=== PATIENT | female | born 1955 | race Caucasian/White ===

== ENCOUNTER 2019-06-08 19:05 | Observation (INO) ==
[2019-06-08 20:04] LABS: Basophils % 0.4 %; Eosinophils # 0.1 K/mcL (0.0-0.6); Eosinophils % 0.6 %; Hematocrit 42.3 % (35.3-44.9); Immature Granulocytes % 0.2 % (0-4); Lymphocytes # 3.9 K/mcL (0.6-4.6); Lymphocytes % 45.6 %; Mean Corpuscular HGB Conc 30.7 g/dL (31.6-35.5); Mean Corpuscular Hemoglobin 26.5 pg (28.0-33.3); Mean Corpuscular Volume 86.3 fL (83.0-100.0); Mean Platelet Volume 11.5 fL (9.4-12.4); Monocytes # 0.6 K/mcL (0.0-1.3); Monocytes % 6.5 %; Neutrophils # 3.9 K/mcL (1.6-8.9); Platelet Count 286 K/mcL (140-400); Red Cell Distribution Width 15.3 % (11.5-14.5); Segmented Neutrophils % 46.7 %; White Blood Count 8.4 K/mcL (4.3-11.1)
[2019-06-08 20:08] LABS: Clarity,Urine Slightly Hazy (Clear); Color,Urine Orange (Yellow)
[2019-06-08 20:09] LABS: Squamous Epithelial Cell,Urine Few per lpf (None-Few)
[2019-06-08 20:10] LABS: RBC,Urine TNTC per hpf (0-3)
[2019-06-08 20:11] LABS: Bacteria,Urine Few per hpf (None-Few)
[2019-06-08 20:16] LABS: Prothrombin Time 11.1 Seconds (9.4-12.1)
[2019-06-08 20:23] LABS: Albumin/Globulin Ratio 1.2 (1.1-2.2); Bilirubin,Direct 0.1 mg/dL (0.0-0.2); Bilirubin,Indirect 0.2 mg/dL (0.0-1.2); Bilirubin,Total 0.3 mg/dL (0.3-1.0); Globulin 3.4 g/dL (2.4-3.5); Total Protein 7.4 g/dL (6.4-8.9)
[2019-06-08 20:25] LABS: Calcium 9.2 mg/dL (8.6-10.3); Potassium 3.2 mEq/L (3.5-5.1)
[2019-06-08] MEDS ORDERED: cefTRIAXone 1,000 MG in Water for inj. (sterile) 10 ML IVP ONE (20:28)
[2019-06-08 20:30] LABS: Troponin I 0.66 ng/mL (< 0.04)
--- NOTE | 2019-06-08 20:32 | Emergency Department Note ---
Disposition Clinical Impression: Atrial fibrillation with RVR Disposition: Admitted As Inpatient Condition: Good Referrals: Manuel Alex MD [Primary Care Provider] - Forms: ED Satisfaction Letter Time of Disposition: 20:56 Arrhythmia/Palpitations HPI - General Chief Complaint: ED Arrhythmia/Palpitations Stated Complaint: A-FIB Time Seen by Provider: 06/08/19 19:15 Source: patient Mode of arrival: private vehicle Limitations: no limitations Nursing Notes Reviewed: Yes Vital Signs Reviewed: Yes - History of Present Illness HPI Narrative: 63F with Pmhx of Atrial fibrillation recently found to have a kidney stone in her left kidney for which she had a stent placed, who notes that her heart started feeling "out of rhythm" yesterday. She takes prn diltiazem, so she tried taking some yesterday and then again today at 1300 without resolution of her symptoms. She notes lightheadedness, dizziness, and shortness of breath. She denies chest pain. She denies nausea. She also notes that she has a stent in her kidney and is scheduled for lithotripsy to remove the kidney stone. Additionally, she has been taken off her anti-coagulation therapy for the afib due to bleeding issues in her kidney. - Related Data Home Medications Medication Instructions Recorded Confirmed Unable To Obtain [Unable to Obtain] 06/08/19 06/08/19 Allergies Allergy/AdvReac Type Severity Reaction Status Date / Time propoxyphene Allergy Rash Verified 06/08/19 19:25 [From Darvocet-N] oxycodone [From OxyContin] AdvReac Agitated Verified 06/08/19 19:26 Review of Systems: In addition to that documented in the HPI above, the additional ROS was obtained: Constitutional: Denies fevers or chills Eyes: Denies vision changes ENMT: Denies sore throat CV: Denies chest pain Reports sensation of palpitations Resp: Reports SOB GI: Denies vomiting or diarrhea : Denies painful urination MSK: Denies recent trauma Skin: Denies new rashes Neuro: Denies new numbness or tingling or weakness Reports lightheadeness Endocrine: Denies unexpected weight loss Heme: Denies bleeding disorders Past Medical History - Past Medical History Attestation: Yes The following information was validated with the patient. Medical history: Reports: atrial fibrillation, kidney stones - Social History Smoking Status: Never smoker Alcohol use: Reports: none Physical Exam General: A&O x 3. No acute distress. Well developed, well nourished. Head: atraumatic, normocephalic. ENT: No conjunctival injection, no scleral icterus. PERRLA. EOMI. Oropharynx non- erythematous. mucous membranes moist. Neuro: No focal deficits, no speech deficit, no facial droop, mentating well. BUE/BLE Str 5/5. Pulm: Lungs CTAB A/P. No wheezes, rales, ronchi. Cardio: irregularly irregular without murmur/rub/gallop. Chest not tender to palpation. Abd: Soft, non-distended. Normoactive bowel sounds. Non-tender to palpation. No guarding. Non rigid. Extremities: Radial pulses 2+ [place], dorsalis pedis/posterior tibialis 2+ [place]. Mild, non-pitting LE edema. No cyanosis, clubbing. Skin: warm, dry, intact. No rashes. Psych: Appropriate mood and affect. Answers questions appropriately. Cooperative with exam. - General Limitations: no limitations General appearance: alert, in no apparent distress Course - Consultations Consultation #1: Spoke with Dr. Long who was made aware of the patient, their lab results, their EKG findings, their anti-coagulation status, and had no further recommendations at this time. Time: 20:54 Vital Signs Temperature 98 F 06/08/19 19:22 Pulse Rate 96 06/08/19 19:22 Respiratory Rate 20 06/08/19 19:22 Blood Pressure 110/70 06/08/19 19:22 O2 Sat by Pulse Oximetry 96 06/08/19 19:22 Temperature 98 F 06/08/19 19:22 Pulse Rate 93 06/08/19 20:12 Respiratory Rate 16 06/08/19 20:12 Blood Pressure 102/79 06/08/19 20:12 O2 Sat by Pulse Oximetry 96 06/08/19 20:12 Oxygen Delivery Oxygen Delivery Room Air Arrhythmia/Palpitations - [facility] Narrative Medical decision making narrative: 63-year-old female with a past medical history of A. fib that is on when nec essary diltiazem, but noted that she felt that her heart was out of rhythm starting yesterday evening. Patient presented with a heart rate initially in the 130s. She denies any chest pain. Patient was given a bolus of diltiazem and started on a diltiazem drip which improved her rate low 100 bpm. Patient did have a positive troponin at 0.66 although I believe, and cardiology agrees, that this is likely due to demand ischemia. Patient will be admitted to the hospitalist Dr. Schafer who is agreed to accept the patient to his service. Results of the workup including any imaging and/or labwork was shared with the patient at bedside. Patient was given an opportunity to ask questions at bedside and all of their concerns were addressed. Patient verbalized understanding and agreement with plan of care. Pt remained stable while in the department. - Medical Records Medical records reviewed: Yes I reviewed the patient's medical records. - Lab Data Lab results reviewed: Yes I reviewed the patient's lab results. Result diagrams: 06/08/19 19:49 06/08/19 19:49 Lab Results 06/08/19 06/08/19 06/08/19 Range/Units 19:49 19:49 19:49 WBC (4.3-11.1) K/mcL RBC (3.82-4.97) M/mcL Hgb (11.5-15.4) g/dL Hct (35.3-44.9) % MCV (83.0-100.0) fL MCH (28.0-33.3) pg MCHC (31.6-35.5) g/dL RDW (11.5-14.5) % Plt Count (140-400) K/mcL MPV (9.4-12.4) fL Immature Gran % (0-4) % Seg Neutrophils % % Lymphocytes % % Monocytes % % Eosinophils % % Basophils % % Neutrophils # (1.6-8.9) K/mcL Lymphocytes # (0.6-4.6) K/mcL Monocytes # (0.0-1.3) K/mcL Eosinophils # (0.0-0.6) K/mcL Basophils # (0.0-0.2) K/mcL PT 11.1 (9.4-12.1) Seconds INR 1.0 APTT 30.0 (26.0-36.0) Seconds Sodium (136-145) mEq/L Potassium (3.5-5.1) mEq/L Chloride (98-107) mEq/L Carbon Dioxide (23-29) mEq/L BUN (8-23) mg/dL Creatinine (0.60-1.20) mg/dL Est GFR ( Amer) (> 60) Est GFR (Non-Af Amer) (> 60) BUN/Creatinine Ratio (6-26) Glucose (70-105) mg/dL Calculated Osmolality (280-300) Calcium (8.6-10.3) mg/dL Total Bilirubin 0.3 (0.3-1.0) mg/dL Direct Bilirubin 0.1 (0.0-0.2) mg/dL Indirect Bilirubin 0.2 (0.0-1.2) mg/dL AST 30 (13-39) Units/L ALT 18 (7-52) Units/L Alkaline Phosphatase 94 (34-104) Units/L Troponin I (< 0.04) ng/mL B-Natriuretic Peptide 268 H (Less than 100) pg/mL Serum Total Protein 7.4 (6.4-8.9) g/dL Albumin 4.0 (3.5-5.7) g/dL Globulin 3.4 (2.4-3.5) g/dL Albumin/Globulin Ratio 1.2 (1.1-2.2) Lipase 25 (11-82) Units/L Ur Specimen Adequacy Urine Color (Yellow) Urine Clarity (Clear) Urine Microscopic RBC (0-3) per hpf Urine Microscopic WBC (0-3) per hpf Ur Squamous Epith Cells (None-Few) per lpf Urine Bacteria (None-Few) per hpf Ur Culture Indicated? (NO) 06/08/19 06/08/19 06/08/19 Range/Units 19:49 19:49 19:49 WBC 8.4 (4.3-11.1) K/mcL RBC 4.90 (3.82-4.97) M/mcL Hgb 13.0 (11.5-15.4) g/dL Hct 42.3 (35.3-44.9) % MCV 86.3 (83.0-100.0) fL MCH 26.5 L (28.0-33.3) pg MCHC 30.7 L (31.6-35.5) g/dL RDW 15.3 H (11.5-14.5) % Plt Count 286 (140-400) K/mcL MPV 11.5 (9.4-12.4) fL Immature Gran % 0.2 (0-4) % Seg Neutrophils % 46.7 % Lymphocytes % 45.6 % Monocytes % 6.5 % Eosinophils % 0.6 % Basophils % 0.4 % Neutrophils # 3.9 (1.6-8.9) K/mcL Lymphocytes # 3.9 (0.6-4.6) K/mcL Monocytes # 0.6 (0.0-1.3) K/mcL Eosinophils # 0.1 (0.0-0.6) K/mcL Basophils # 0.0 (0.0-0.2) K/mcL PT (9.4-12.1) Seconds INR APTT (26.0-36.0) Seconds Sodium 136 (136-145) mEq/L Potassium 3.2 L (3.5-5.1) mEq/L Chloride 99 (98-107) mEq/L Carbon Dioxide 27 (23-29) mEq/L BUN 12 (8-23) mg/dL Creatinine 1.28 H (0.60-1.20) mg/dL Est GFR ( Amer) 51 L (> 60) Est GFR (Non-Af Amer) 42 L (> 60) BUN/Creatinine Ratio 9 (6-26) Glucose 106 H (70-105) mg/dL Calculated Osmolality 282 (280-300) Calcium 9.2 (8.6-10.3) mg/dL Total Bilirubin (0.3-1.0) mg/dL Direct Bilirubin (0.0-0.2) mg/dL Indirect Bilirubin (0.0-1.2) mg/dL AST (13-39) Units/L ALT (7-52) Units/L Alkaline Phosphatase (34-104) Units/L Troponin I 0.66 H* (< 0.04) ng/mL B-Natriuretic Peptide (Less than 100) pg/mL Serum Total Protein (6.4-8.9) g/dL Albumin (3.5-5.7) g/dL Globulin (2.4-3.5) g/dL Albumin/Globulin Ratio (1.1-2.2) Lipase (11-82) Units/L Ur Specimen Adequacy See below A Urine Color [place] A (Yellow) Urine Clarity Slightly Hazy (Clear) Urine Microscopic RBC TNTC H (0-3) per hpf Urine Microscopic WBC 5-15 H (0-3) per hpf Ur Squamous Epith Cells Few (None-Few) per lpf Urine Bacteria Few (None-Few) per hpf Ur Culture Indicated? YES A (NO) - Radiology Data Radiology results reviewed: Yes I reviewed the patient's radiology results. Chest X-Ray 06/08/19 19:18 IMPRESSION: No acute abnormality visualized. D/ / Sha Martinez MD / Sha Martinez MD Interpreting Provider: Sha Martinez MD - EKG Data EKG attestation: Yes I reviewed and interpreted this EKG. EKG results narrative: 1934: Heart rate 136, rhythm atrial fibrillation, axis normal. QRS 86, QTC [address] depression noted in leads V1 through V3. No ST elevation noted. Previous EKG is dated 05/21/2006 and shows normal sinus rhythm. 2035: Heart rate 93, rhythm atrial fibrillation, axis normal. QRS 99, QTC 452. ST depression seen on previous EKG has resolved. No ST segment elevation or depression noted on this EKG.
--- NOTE | 2019-06-08 21:09 | Emergency Department Note ---
Disposition Clinical Impression: Atrial fibrillation with RVR Disposition: Admitted As Inpatient Condition: Good Referrals: Manuel Alex MD [Primary Care Provider] - Forms: ED Satisfaction Letter Time of Disposition: 21:09 General Adult HPI - General Chief complaint: ED Arrhythmia/Palpitations Stated complaint: A-FIB Time Seen by Provider: 06/08/19 19:15 Source: patient Mode of arrival: private vehicle Limitations: no limitations - History of Present Illness Pain Scale: 0 - Related Data Home Medications Medication Instructions Recorded Confirmed Unable To Obtain [Unable to Obtain] 06/08/19 06/08/19 Allergies Allergy/AdvReac Type Severity Reaction Status Date / Time propoxyphene Allergy Rash Verified 06/08/19 19:25 [From Darvocet-N] oxycodone [From OxyContin] AdvReac Agitated Verified 06/08/19 19:26 Past Medical History - Past Medical History Medical history: Reports: atrial fibrillation, kidney stones - Social History Smoking Status: Never smoker Alcohol use: Reports: none Physical Exam - General Limitations: no limitations General appearance: alert, in no apparent distress Course Vital Signs Temperature 98 F 06/08/19 19:22 Pulse Rate 96 06/08/19 19:22 Respiratory Rate 20 06/08/19 19:22 Blood Pressure 110/70 06/08/19 19:22 O2 Sat by Pulse Oximetry 96 06/08/19 19:22 Temperature 98 F 06/08/19 19:22 Pulse Rate 93 06/08/19 20:12 Respiratory Rate 16 06/08/19 20:12 Blood Pressure 102/79 06/08/19 20:12 O2 Sat by Pulse Oximetry 96 06/08/19 20:12 Oxygen Delivery Oxygen Delivery Room Air Medical Decision Making - Lab Data Result diagrams: 06/08/19 19:49 06/08/19 19:49 Lab Results 06/08/19 06/08/19 06/08/19 Range/Units 19:49 19:49 19:49 WBC (4.3-11.1) K/mcL RBC (3.82-4.97) M/mcL Hgb (11.5-15.4) g/dL Hct (35.3-44.9) % MCV (83.0-100.0) fL MCH (28.0-33.3) pg MCHC (31.6-35.5) g/dL RDW (11.5-14.5) % Plt Count (140-400) K/mcL MPV (9.4-12.4) fL Immature Gran % (0-4) % Seg Neutrophils % % Lymphocytes % % Monocytes % % Eosinophils % % Basophils % % Neutrophils # (1.6-8.9) K/mcL Lymphocytes # (0.6-4.6) K/mcL Monocytes # (0.0-1.3) K/mcL Eosinophils # (0.0-0.6) K/mcL Basophils # (0.0-0.2) K/mcL PT 11.1 (9.4-12.1) Seconds INR 1.0 APTT 30.0 (26.0-36.0) Seconds Sodium (136-145) mEq/L Potassium (3.5-5.1) mEq/L Chloride (98-107) mEq/L Carbon Dioxide (23-29) mEq/L BUN (8-23) mg/dL Creatinine (0.60-1.20) mg/dL Est GFR ( Amer) (> 60) Est GFR (Non-Af Amer) (> 60) BUN/Creatinine Ratio (6-26) Glucose (70-105) mg/dL Calculated Osmolality (280-300) Calcium (8.6-10.3) mg/dL Total Bilirubin 0.3 (0.3-1.0) mg/dL Direct Bilirubin 0.1 (0.0-0.2) mg/dL Indirect Bilirubin 0.2 (0.0-1.2) mg/dL AST 30 (13-39) Units/L ALT 18 (7-52) Units/L Alkaline Phosphatase 94 (34-104) Units/L Troponin I (< 0.04) ng/mL B-Natriuretic Peptide 268 H (Less than 100) pg/mL Serum Total Protein 7.4 (6.4-8.9) g/dL Albumin 4.0 (3.5-5.7) g/dL Globulin 3.4 (2.4-3.5) g/dL Albumin/Globulin Ratio 1.2 (1.1-2.2) Lipase 25 (11-82) Units/L Ur Specimen Adequacy Urine Color (Yellow) Urine Clarity (Clear) Urine Microscopic RBC (0-3) per hpf Urine Microscopic WBC (0-3) per hpf Ur Squamous Epith Cells (None-Few) per lpf Urine Bacteria (None-Few) per hpf Ur Culture Indicated? (NO) 06/08/19 06/08/19 06/08/19 Range/Units 19:49 19:49 19:49 WBC 8.4 (4.3-11.1) K/mcL RBC 4.90 (3.82-4.97) M/mcL Hgb 13.0 (11.5-15.4) g/dL Hct 42.3 (35.3-44.9) % MCV 86.3 (83.0-100.0) fL MCH 26.5 L (28.0-33.3) pg MCHC 30.7 L (31.6-35.5) g/dL RDW 15.3 H (11.5-14.5) % Plt Count 286 (140-400) K/mcL MPV 11.5 (9.4-12.4) fL Immature Gran % 0.2 (0-4) % Seg Neutrophils % 46.7 % Lymphocytes % 45.6 % Monocytes % 6.5 % Eosinophils % 0.6 % Basophils % 0.4 % Neutrophils # 3.9 (1.6-8.9) K/mcL Lymphocytes # 3.9 (0.6-4.6) K/mcL Monocytes # 0.6 (0.0-1.3) K/mcL Eosinophils # 0.1 (0.0-0.6) K/mcL Basophils # 0.0 (0.0-0.2) K/mcL PT (9.4-12.1) Seconds INR APTT (26.0-36.0) Seconds Sodium 136 (136-145) mEq/L Potassium 3.2 L (3.5-5.1) mEq/L Chloride 99 (98-107) mEq/L Carbon Dioxide 27 (23-29) mEq/L BUN 12 (8-23) mg/dL Creatinine 1.28 H (0.60-1.20) mg/dL Est GFR ( Amer) 51 L (> 60) Est GFR (Non-Af Amer) 42 L (> 60) BUN/Creatinine Ratio 9 (6-26) Glucose 106 H (70-105) mg/dL Calculated Osmolality 282 (280-300) Calcium 9.2 (8.6-10.3) mg/dL Total Bilirubin (0.3-1.0) mg/dL Direct Bilirubin (0.0-0.2) mg/dL Indirect Bilirubin (0.0-1.2) mg/dL AST (13-39) Units/L ALT (7-52) Units/L Alkaline Phosphatase (34-104) Units/L Troponin I 0.66 H* (< 0.04) ng/mL B-Natriuretic Peptide (Less than 100) pg/mL Serum Total Protein (6.4-8.9) g/dL Albumin (3.5-5.7) g/dL Globulin (2.4-3.5) g/dL Albumin/Globulin Ratio (1.1-2.2) Lipase (11-82) Units/L Ur Specimen Adequacy See below A Urine Color [place] A (Yellow) Urine Clarity Slightly Hazy (Clear) Urine Microscopic RBC TNTC H (0-3) per hpf Urine Microscopic WBC 5-15 H (0-3) per hpf Ur Squamous Epith Cells Few (None-Few) per lpf Urine Bacteria Few (None-Few) per hpf Ur Culture Indicated? YES A (NO) Attestation Statement - Attestation Attestation: I reviewed the residents documentation and agree with the residents assessment and plan of care. I have personally had face to face time with the patient. (Brief History, Brief Exam, and MDM) I personally supervised and was present for the lo/critical portions of the following procedures completed by the resident: EKG 63 year old female prsents ot the eD with complaints of afib RvR and most recently has been off her anticoauglation therapy because of kidney stone that is currently stented and being treatefd for an infection which appears to be improving per bactrim therapy. She has a lithrotripsy scheduled for [facility] at [facility]. Mona has dilt drip and bolus and her HR has improved from 140 to 110 and we will admit ot medicine. Mona has been consulted with cardiology and they will see in consult. Rocephin given for therapy
[2019-06-08] MEDS ORDERED: Potassium Chloride Elixir 20 MEQ/15 ML UDC PO ONE (23:19)
[2019-06-09] MEDS ORDERED: *HR* HYDROcodone/Acet 5/325 mg TABLET PO PRN ×2 (00:30→07:28)
[2019-06-09] MEDS ORDERED: Acetaminophen 325 MG TABLET PO PRN ×2 (00:34→07:28)
[2019-06-09] MEDS ORDERED: Naloxone 0.4 MG/ML INJ IVP PRN (00:35)
--- NOTE | 2019-06-09 01:12 | Internal Med History&Physical ---
Date of Encounter: 06/08/19 Time of Encounter: 23:30 Internal Medicine - H&P: HPI Chief complaint: Heart arrhythmia/Palpitations Admitted From: Emergency Dept Plans for Post Hospital Care: Home History of present illness: Ms. Calvert is a 63 year old female w/PMH of atrial fibrillation not currently on anticoagulation, suspected CHF, RLS, bilateral nerve pain in LEs, depression, and current renal stone in her left kidney presents from the ED w/CC of heart palpitations that began yesterday and have not subsided. Patient states that at the end of November she began having hematuria. Patient had scope in December w/urine FISH tests in January, February, and April. Patient states she had renal stent placed on Thursday with plan for lithotripsy to remove the kidney stone on Thursday. Patient has been taken off anticoagulation due to bleeding issues in her kidney. Patient reports she takes Multaq twice a day but Cardizem only when necessary. Patient has suspected history of CHF and BNP on admission is 268. Patient reports she takes 40 mg PO lasix daily. Also on admission, initial troponin was 0.66. Patient denies any CP. Creatinine currently 1.28 and GFR 42 on admission. Associated symptoms with current heart palpitations: Lightheadedness, dizziness, weakness, and SOB. Patient denies recent illness, fever, chills, na usea, vomiting, headache, changes in vision, cough, chest congestion, abdominal pain, diarrhea, constipation, numbness, tingling, pre-syncope, or syncope. Past Med Surg Social Fam HX - Past Medical History Source: patient, old records reviewed Medical history: atrial fibrillation, CHF, kidney stones, other (RLS) Psychiatric history: depression - Past Surgical History Surgical History: other Additional surgical history: uretal stent. gastric bypass. B/L knee. hernia - Social History Smoking Status: Never smoker Smokeless Tobacco Status: No Alcohol use: none Drug use: none Current living situation: Home Activity Level: Independent ambulation Recent Out of Country Travel Within the Last 8 Weeks: No Exposure or Possible Exposure to Illness During Travel: No - Family History Father Race: Family Member Ethnicity: Non- Living Status: Age at : 80 Cause of : Lung cancer (Metastatic) Hx Family Cardiac Disorders: Yes (Quadruple bypass, Afib, CHF, ME) Hx Family Cancer: Yes (Lung/Metastatic) Mother History Unknown: Yes Race: Family Member Ethnicity: Non- Living Status: Age at : 19 Cause of : Unknown Brother Race: Family Member Ethnicity: Non- Living Status: Still Living Hx Family Cardiac Disorders: Yes (ME) Hx Family Endocrine Disorder: Yes (DM) Sister Race: Family Member Ethnicity: Non- Living Status: Still Living Hx Family Medical Disorders: No Internal Medicine - H&P: Meds Unable To Obtain [Unable to Obtain] 06/08/19 [History] Allergy/AdvReac Type Severity Reaction Status Date / Time propoxyphene Allergy Rash Verified 06/08/19 19:25 [From Darvocet-N] oxycodone [From OxyContin] AdvReac Agitated Verified 06/08/19 19:26 All Systems PM: A 10-system review of systems was performed and is negative for pertinent findings except as documented above in the HPI. - Constitutional Constitutional: as per HPI, fatigue, weakness, no chills, no fever(s), no night sweats - EENT Eyes: no change in vision, no discharge, no pain, no photophobia Ears: no ear discharge, no ear pain, no tinnitus Nose, mouth and throat: no dysphagia, no nasal discharge, no neck pain, no sore throat - Breasts Breasts: as per HPI - Cardiovascular Cardiovascular ROS IM: as per HPI (Occasionally in bilateral LEs), dyspnea, dyspnea on exertion, edema, irregular heart rhythm, lightheadedness, palpitations, no chest pain, no diaphoresis, no syncope - Respiratory Respiratory: as per HPI, dyspnea, dyspnea on exertion, no cough, no wheezing, no excessive phlegm production - Gastrointestinal Gastrointestinal: no abdominal pain, no diarrhea, no hematemesis, no hematochezia, no melena, no nausea, no vomiting - Genitourinary Genitourinary: as per HPI, hematuria, no change in urinary stream, no dysuria, no flank pain Menstruation: as per HPI - Musculoskeletal Musculoskeletal ROS IM: no numbness, no tingling - Integumentary Integumentary IM: no rash, no unusual bruising - Neurological Neurological ROS: as per HPI, weakness, no confusion, no convulsions, no focal weakness, no numbness, no tingling, no tremor(s) - Psychiatric Psychiatric: as per HPI, depression - Endocrine Endocrine IM: as per HPI - Hematologic/Lymphatic Hematologic/Lymphatic: no easy bruising - Allergic/Immunologic Allergic/Immunologic: as per HPI - Constitutional Vitals: Temp Pulse Resp BP Pulse Ox 98.1 F 87 21 101/69 98 06/09/19 00:22 06/09/19 00:22 06/09/19 00:45 06/09/19 00:22 06/09/19 00:45 General appearance: Present: cooperative, A&O X 3, morbidly obese, pleasant, no acute distress, answers questions appropriately Exam: Patient examined at bedside. Patient resting in bed and reporting no current symptoms or complaints on examination. Pt. states she becomes dizzy/lightheaded when ambulating. Instructed to not get out of bed w/o assistance and to use her call light. VS: 98.1F temp, HR 87, RR 15, BP 101/69, SPO2 95% on room air. - Head Head exam: Present: atraumatic, normocephalic - Eye Eye exam: Present: PERRL, conjuntiva pink, sclera anicteric Pupils: Present: PERRL - ENT ENT exam: Present: normal exam - Neck Neck exam general surgery: Present: normal inspection, supple, trachea midline. Absent: lymphadenopathy - Respiratory Respiratory exam: Present: CTAB. Absent: accessory muscle use, rales, rhonchi, wheezes - Cardiovascular Cardiovascular exam: Present: RRR, +S1, +S2. Absent: diastolic murmur, gallop, rubs, systolic murmur - GI/Abdominal GI/Abdominal exam: Present: normal bowel sounds, soft, no peritoneal signs. Absent: distended, tenderness - Rectal Rectal exam: Present: deferred - Additional comments: exam deferred. - Extremities Exam Extremities exam: Present: pedal edema (Non-pitting), warm, radial pulses palpa ble and symmetrical. Absent: calf tenderness, cyanotic - Back Exam Back exam: Present: normal inspection - Neurological Exam Neurological exam: Present: alert, CN II-XII intact, oriented X3, no focal deficits. Absent: pronater drift, facial droop, speech deficit - Psychiatric Psychiatric exam: Present: normal affect, normal mood - Skin Skin exam: Present: dry, intact Internal Med - H&P Results - Labs CBC & Chem 7: 06/08/19 19:49 06/08/19 19:49 Labs: Short CBC 06/08/19 Range/Units 19:49 WBC 8.4 (4.3-11.1) K/mcL Hgb 13.0 (11.5-15.4) g/dL Hct 42.3 (35.3-44.9) % Plt Count 286 (140-400) K/mcL Neutrophils # 3.9 (1.6-8.9) K/mcL BMP 06/08/19 19:49 Sodium 136 Potassium 3.2 L Chloride 99 Carbon Dioxide 27 BUN 12 Creatinine 1.28 H Glucose 106 H Calcium 9.2 Cardiac Enzymes 06/08/19 Range/Units 19:49 Troponin I 0.66 H* (< 0.04) ng/mL Liver Function 06/08/19 Range/Units 19:49 Total Bilirubin 0.3 (0.3-1.0) mg/dL Direct Bilirubin 0.1 (0.0-0.2) mg/dL AST 30 (13-39) Units/L ALT 18 (7-52) Units/L Alkaline Phosphatase 94 (34-104) Units/L Albumin 4.0 (3.5-5.7) g/dL Urine 06/08/19 Range/Units 19:49 Urine Color [place] A (Yellow) Urine Clarity Slightly Hazy (Clear) - EKG Data Prior EKG available for review: yes EKG comments: 06/09/19 02:21 EKG dated 05/21/06 shows sinus rhythm within normal limits. EKG dated 06/08/19 @19:35 shows atrial fibrillation, abnormal R-wave progression and early transition, nonspecific repolarization abnormality and diffuse leads, borderline prolonged QT interval, and ST depression in V1 through V3. EKG dated 06/18/19 @20:36 shows atrial fibrillation with abnormal R-wave progression and early transition. - Impressions ITS Impressions Chest X-Ray 06/08/19 19:18 IMPRESSION: No acute abnormality visualized. D/ / Sha Martinez MD / Sha Martinez MD Interpreting Provider: Sha Martinez MD - Diagnostic Studies Chest x-ray Additional comments: Impressions Chest X-Ray 06/08/19 19:18 IMPRESSION: No acute abnormality visualized. D/ / Sha Martinez MD / Sha Martinez MD Interpreting Provider: Sha Martinez MD - Assessment and Plan (1) Atrial fibrillation with RVR Current Visit: Yes Status: Acute Assessment and plan: Acute on chronic atrial fibrillation w/RVR. Patient has hx of atrial fibrillation but is not currently anticoagulated d/t planned lithotripsy for left renal stone. Patient reports heart palpitations that began yesterday and have not subsided. Patient states she had renal stent placed on Thursday with plan for lithotripsy to remove the kidney stone on Thursday. Patient has been taken off anticoagulation due to bleeding issues in her kidney. Patient reports she takes Multaq twice a day but Cardizem only when necessary. Initial troponin 0.66 and pt. asymptomatic. Likely reactive. Trending troponins. Echocardiogram. Continuous cardiac telemetry. Cardiology consult ordered and confirmed in ED d/t pts. current elevated troponin and Afib. Patient is high risk for cardiac event and further morbidity d/t current Afib w/o anticoagulation, current elevated troponin of unknown etiology, hypokalemia requiring replenishment and mon itoring, current renal dysfunction d/t left renal stone, CHF; and risk factors of morbid obesity and familial hx of CAD and ME. Observation. (2) Elevated troponin Current Visit: Yes Status: Acute Assessment and plan: Acutely elevated initial troponin of 0.66. Patient denies CP or cardiac sx. Likely reactive d/t current Afib w/RVR versus CHF. Trending troponins. Cardiology consult ordered and confirmed in ED. Monitor pt. closely for signs of CP or other cardiac sx. Echocardiogram ordered. (3) Hypokalemia Current Visit: Yes Status: Acute Assessment and plan: Acute hypokalemia w/potassium of 3.2 on admission. One-time order for 40 mEq potassium elixir ordered. Will continue pts. PO potassium 20 mEq daily. Monitor pt. and f/u labs. Continuous cardiac telemetry. (4) Renal calculus, left Current Visit: Yes Status: Acute Assessment and plan: Acute left renal calculus. Patient had renal stent placed on Thursday w/plan for lithotripsy on Thursday. Holding anticoagulation d/t impending procedure and recen t hematuria. Patient to f/u w/her scheduled [employer]. (5) Dizziness Current Visit: Yes Status: Acute Assessment and plan: Acute dizziness w/current palpitations. Orthostatic BPs and vital signs. F alls/safety precautions and up with assist only. (6) SOB (shortness of breath) Current Visit: Yes Status: Acute Assessment and plan: Acute SOB w/current heart palpitations. Hx of CHF. No current fluid overload noted and no pitting edema in LEs. Supplemental O2 with titration and SPO2 monitoring. (7) CHF (congestive heart failure) Current Visit: Yes Status: Chronic Assessment and plan: Hx of chronic CHF. BNP 268 on admission. Patient reports edema in bilateral LEs occasionally. Continue pts. PO lasix 40 mg daily. Monitor strict I&O. 1.5L daily fluid restriction. Echocardiogram. Continuous cardiac telemetry. Qualifiers: Heart failure type: unspecified Heart failure chronicity: chronic Qualified Code(s): I50.9 - Heart failure, unspecified (8) Depression Current Visit: Yes Status: Chronic Assessment and plan: Hx of chronic depression. Continue pts. Trazodone HS. Qualifiers: Depression Type: other depression Qualified Code(s): F32.89 - Other specified depressive episodes (9) DVT prophylaxis Current Visit: Yes Status: Acute Assessment and plan: Bilateral SCDs on LEs for DVT prophylaxis d/t plan for lithotripsy. - Time Spent With Patient Total time spent is greater than 50% in coordination of care (as documented) at patient's floor/unit and/or counseling patient: Greater than 35 minutes
[2019-06-09 03:37] LABS: Hematocrit 37.7 % (35.3-44.9); Hemoglobin 11.8 g/dL (11.5-15.4); Mean Corpuscular HGB Conc 31.3 g/dL (31.6-35.5); Mean Corpuscular Hemoglobin 26.5 pg (28.0-33.3); Mean Corpuscular Volume 84.7 fL (83.0-100.0); Mean Platelet Volume 11.9 fL (9.4-12.4); Platelet Count 228 K/mcL (140-400); Red Blood Count 4.45 M/mcL (3.82-4.97); Red Cell Distribution Width 15.1 % (11.5-14.5); White Blood Count 7.2 K/mcL (4.3-11.1)
[2019-06-09 03:57] LABS: Calcium 8.8 mg/dL (8.6-10.3); Chol/HDL Ratio 3.3 (0-4.9); Magnesium 2.1 mg/dL (1.6-2.6); Potassium 3.9 mEq/L (3.5-5.1)
[2019-06-09 04:12] LABS: Thyroid Stimulating Hormone 1.548 mcIU/mL (0.340-5.600)
[2019-06-09 07:29] LABS: Estimated Average Glucose 126 mg/dl
--- NOTE | 2019-06-09 07:37 | Internal Med Progress Note ---
Hospitalist Progress Note - Encounter Date of Encounter: 06/09/19 Time of Encounter: 07:36 - Exam Vitals: Temp Pulse Resp BP Pulse Ox 98.1 F 56 18 103/69 93 06/09/19 03:54 06/09/19 03:54 06/09/19 03:54 06/09/19 03:54 06/09/19 03:54 - Time Spent with Patient Total time spent is greater than 50% in coordination of care (as documented) at patient's floor/unit and/or counseling patient: Internal Medicine: Result - Labs CBC & Chem 7: 06/09/19 02:50 06/09/19 02:50 Labs: Short CBC 06/08/19 06/09/19 Range/Units 19:49 02:50 WBC 8.4 7.2 (4.3-11.1) K/mcL Hgb 13.0 11.8 (11.5-15.4) g/dL Hct 42.3 37.7 (35.3-44.9) % Plt Count 286 228 (140-400) K/mcL Neutrophils # 3.9 (1.6-8.9) K/mcL BMP 06/08/19 06/09/19 19:49 02:50 Sodium 136 138 Potassium 3.2 L 3.9 Chloride 99 103 Carbon Dioxide 27 25 BUN 12 11 Creatinine 1.28 H 1.12 Glucose 106 H 106 H Calcium 9.2 8.8 Cardiac Enzymes 06/08/19 06/09/19 Range/Units 19:49 02:50 Troponin I 0.66 H* 0.48 H* (< 0.04) ng/mL Liver Function 06/08/19 Range/Units 19:49 Total Bilirubin 0.3 (0.3-1.0) mg/dL Direct Bilirubin 0.1 (0.0-0.2) mg/dL AST 30 (13-39) Units/L ALT 18 (7-52) Units/L Alkaline Phosphatase 94 (34-104) Units/L Albumin 4.0 (3.5-5.7) g/dL Urine 06/08/19 Range/Units 19:49 Urine Color [place] A (Yellow) Urine Clarity Slightly Hazy (Clear) - ABG Interpretation ABG results: PT/INR, D-dimer PT 11.1 Seconds (9.4-12.1) 06/08/19 19:49 - Impressions Impressions Chest X-Ray 06/08/19 19:18 IMPRESSION: No acute abnormality visualized. D/ / Sha Martinez MD / Sha Martinez MD Interpreting Provider: Sha Martinez MD Consult Discharge Plan - Plan Referrals: Manuel Alex MD [Primary Care Provider] -
[2019-06-09] MEDS ORDERED: Gabapentin 300 MG CAPSULE PO SCH (09:00)
[2019-06-09] MEDS ORDERED: Furosemide 40 MG TABLET PO SCH (09:00)
[2019-06-09] MEDS ORDERED: Potassium Chloride Elixir 20 MEQ/15 ML UDC PO SCH (09:00)
[2019-06-09] MEDS ORDERED: *HR* Enoxaparin 120 MG/0.8 ML SYRINGE SQ STA (10:02)
--- NOTE | 2019-06-09 10:08 | Cardiology Consult Note ---
<Conor Cr R - Last Filed: 06/09/19 10:03> Date of Encounter: 06/09/19 Time of Encounter: 10:03 Assessment and Plan (1) PAF (paroxysmal atrial fibrillation) Current Visit: Yes Status: Acute Known hx of PAF, diagnosed in 2004. This is first hospitalization for PAF. Per pt, typically converts with PRN cardizem dose. On Multaq 400mg BID at home. Follows with Dr. Varghese. A-Fib RVR HR 130s on presentation, since converted to SR. Has been off anticoagulation since November d/t hematuria. [id number] 1 (female). Since pt is back in SR and follows regularly with Dr. Varghese, recommend continuing Multaq and PRN Cardizem. AC can be further discussed outpt with Dr. Varghese after Lithotripsy. (2) Elevated troponin Current Visit: Yes Status: Acute Troponins 0.66, 0.48, 0.37 in setting of A-Fib RVR. Type I vs Type II NSTEMI. Denies chest pain. Denies any CAD hx. Will give one time dose of therapeutic Lovenox. TTE to evaluate structure and function. Discussed invasive evaluation--LHC--R/B/A. Pt would not want to have any invasive cardiac testing done here since she follows with Dr. Varghese at [facility]. If EF is preserved on TTE, would be okay for d/c with outpt follow-up with Dr. Varghese. If EF is reduced, will then need to discuss inpt transfer. Further recs pending TTE results. Discussion w patient/family: The assessment and plan as outlined above was discussed with the patient and/or family members who expressed understanding and agreement. All questions were answered. Thank you for involving us in the care of your patient. Please call with any questions. I will discuss all the above with Dr. Son and make changes as necessary. History of Present Illness Consult date: 06/09/19 Consult reason: PAF, elevated troponin Chief complaint: palpitations History of present illness: Ms. Calvert is a 63 year old female w/PMH of atrial fibrillation not currently on anticoagulation, RLS, bilateral nerve pain in LEs, depression, and current renal stone in her left kidney presents from the ED w/CC of heart palpitations that began yesterday and have not subsided. Patient states that at the end of November she began having hematuria and stopped anticoagulation at that time. Patient had scope in December w/urine FISH tests in January, February, and April. Patient states she had renal stent placed on Thursday with plan for lithotripsy to remove the kidney stone on Thursday.Patient reports she takes Multaq twice a day and Cardizem PRN. Pt found to be in A-Fib RVR on admission, since converted to SR. Troponins 0.66, 0.48, 0.37. Cardiology consulted for further recs. Pt denies chest pain or dyspnea. Denies any CAD hx. Follows regularly with longshore equipment operator Dr. Varghese at [facility]. Past Med Surg Social Fam HX - Past Medical History Medical history: atrial fibrillation, CHF, kidney stones, other (RLS) Psychiatric history: depression - Past Surgical History Surgical History: other Additional surgical history: uretal stent. gastric bypass. B/L knee. hernia - Social History Smoking Status: Never smoker Smokeless Tobacco Status: No Alcohol use: none Drug use: none - Family History Father Race: Family Member Ethnicity: Non- Living Status: Age at : 80 Cause of : Lung cancer (Metastatic) Hx Family Cardiac Disorders: Yes (Quadruple bypass, Afib, CHF, [place]) Hx Family Cancer: Yes (Lung/Metastatic) Mother History Unknown: Yes Race: Family Member Ethnicity: Non- Living Status: Age at : 19 Cause of : Unknown Brother Race: Family Member Ethnicity: Non- Living Status: Still Living Hx Family Cardiac Disorders: Yes ([place]) Hx Family Endocrine Disorder: Yes (DM) Sister Race: Family Member Ethnicity: Non- Living Status: Still Living Hx Family Medical Disorders: No Medications and Allergies Diltiazem [Cardizem] 60 mg PO AD PRN 06/09/19 [History] Dronedarone [Multaq] 400 mg PO BIDWM 06/09/19 [History] Furosemide [Lasix] 40 mg PO DAILY 06/09/19 [History] Gabapentin [Neurontin] 300 mg PO BID 06/09/19 [History] HYDROcodone/Acet 5/325 mg [[place] 5-325 mg] 1 tab PO BID PRN 06/09/19 [History] Phenazopyridine HCl [Pyridium] 200 mg PO TIDAC PRN 06/09/19 [History] Potassium Chloride [Klor-Con] 20 meq PO DAILY 06/09/19 [History] Sulfamethoxazole/Trimeth DS [Bactrim DS] 1 each PO BID 06/09/19 [History] Tizanidine HCl [Zanaflex] 4 mg PO BID PRN 06/09/19 [History] traZODone [TraZODone] 200 mg PO HS 06/09/19 [History] Allergy/AdvReac Type Severity Reaction Status Date / Time propoxyphene Allergy Rash Verified 06/08/19 19:25 [From Darvocet-N] oxycodone [From OxyContin] AdvReac Agitated Verified 06/08/19 19:26 All Systems Review: The remainder of the systems were reviewed and are negative - Cardiovascular Cardiovascular: as per HPI, palpitations Physical Examination Vital Signs, Last 4 Hours Temp Pulse Resp BP Pulse Ox 06/09/19 08:21 95 06/09/19 07:55 97.4 F L 59 18 139/81 95 Vital Signs Temp Pulse Resp BP Pulse Ox 06/09/19 08:21 95 06/09/19 07:55 97.4 F L 59 18 139/81 95 06/09/19 03:54 98.1 F 56 18 103/69 93 06/09/19 00:45 21 98 06/09/19 00:22 98.1 F 87 15 101/69 95 06/08/19 20:12 93 16 102/79 96 06/08/19 19:22 98 F 96 20 110/70 96 Intake and Output 06/08/19 06/09/19 06/09/19 23:59 07:59 15:59 Intake Total 34 / 154 120 / 154 Output Total 200 / 200 0 / 0 Balance -190 / -190 34 / 154 120 / 154 Intake: IV Fluids Cardizem 125 MG In 0.9 % Sodium Chloride 100 ML @ 5 MG/HR 5 mls/hr IVC CONT HANK Rx#: [id number] Rocephin 1,000 MG In Water for inj. (sterile) 10 ML @ 600 mls/ hr IVP ONCE ONE Rx#:[id number] Oral 120 / 120 Output: Urine 200 / 200 0 / 0 Other: Meal Breakfast Percent of Meal Consumed 60% Weight 120.202 kg General: Conversant, No Apparent Distress HEENT: Atraumatic, Normocephaly, Mucus Membranes Moist Neck: No JVD, Normal carotid pulses Cardiac: Reg Rate and Rhythm, Normal S1 and S2, No Murmur Lungs: Normal Breath Sounds, No Wheeze, Rales, Rhonchi Neuro: Alert and responsive, No focal deficits noted Abdomen: Soft, Non-Tender Skin: No rashes noted on visualized skin Musculoskeletal: No Chest Wall Tenderness Extremities: No Clubbing, No Cyanosis, No Edema, Normal Pulses Results 06/09/19 02:50 06/09/19 02:50 Lab Results 06/08/19 06/08/19 06/08/19 19:49 19:49 19:49 WBC Hgb Hct Plt Count INR 1.0 APTT 30.0 Sodium Potassium Chloride Carbon Dioxide BUN Creatinine Glucose Calcium Magnesium Total Bilirubin 0.3 AST 30 ALT 18 Alkaline Phosphatase 94 Troponin I B-Natriuretic Peptide 268 H Lipase 25 TSH 06/08/19 06/08/19 06/09/19 19:49 19:49 02:50 WBC 8.4 Hgb 13.0 Hct 42.3 Plt Count 286 INR APTT Sodium 136 Potassium 3.2 L Chloride 99 Carbon Dioxide 27 BUN 12 Creatinine 1.28 H Glucose 106 H Calcium 9.2 Magnesium Total Bilirubin AST ALT Alkaline Phosphatase Troponin I 0.66 H* 0.48 H* B-Natriuretic Peptide Lipase TSH 06/09/19 06/09/19 06/09/19 02:50 02:50 02:50 WBC 7.2 Hgb 11.8 Hct 37.7 Plt Count 228 INR APTT Sodium 138 Potassium 3.9 Chloride 103 Carbon Dioxide 25 BUN 11 Creatinine 1.12 Glucose 106 H Calcium 8.8 Magnesium 2.1 Total Bilirubin AST ALT Alkaline Phosphatase Troponin I B-Natriuretic Peptide Lipase TSH 1.548 06/09/19 08:31 WBC Hgb Hct Plt Count INR APTT Sodium Potassium Chloride Carbon Dioxide BUN Creatinine Glucose Calcium Magnesium Total Bilirubin AST ALT Alkaline Phosphatase Troponin I 0.37 H* B-Natriuretic Peptide Lipase TSH Short CBC 06/09/19 06/08/19 Range/Units 02:50 19:49 WBC 7.2 8.4 (4.3-11.1) K/mcL Hgb 11.8 13.0 (11.5-15.4) g/dL Hct 37.7 42.3 (35.3-44.9) % Plt Count 228 286 (140-400) K/mcL Neutrophils # 3.9 (1.6-8.9) K/mcL BMP 06/09/19 06/08/19 Range/Units 02:50 19:49 Sodium 138 136 (136-145) mEq/L Potassium 3.9 3.2 L (3.5-5.1) mEq/L Chloride 103 99 (98-107) mEq/L Carbon Dioxide 25 27 (23-29) mEq/L BUN 11 12 (8-23) mg/dL Creatinine 1.12 1.28 H (0.60-1.20) mg/dL Glucose 106 H 106 H (70-105) mg/dL Calcium 8.8 9.2 (8.6-10.3) mg/dL Cardiac Enzymes 06/09/19 06/09/19 06/08/19 Range/Units 08:31 02:50 19:49 Troponin I 0.37 H* 0.48 H* 0.66 H* (< 0.04) ng/mL Liver Function 06/08/19 Range/Units 19:49 Total Bilirubin 0.3 (0.3-1.0) mg/dL Direct Bilirubin 0.1 (0.0-0.2) mg/dL AST 30 (13-39) Units/L ALT 18 (7-52) Units/L Alkaline Phosphatase 94 (34-104) Units/L Albumin 4.0 (3.5-5.7) g/dL Urine 06/08/19 Range/Units 19:49 Urine Color [place] A (Yellow) Urine Clarity Slightly Hazy (Clear) Impressions Chest X-Ray 06/08/19 19:18 IMPRESSION: No acute abnormality visualized. D/ / Sha Martinez MD / Sha Martinez MD Interpreting Provider: Sha Martinez MD Active Medications Acetaminophen (Tylenol) 650 mg PO Q6HR PRN PRN Reason: mild to moderate pain Stop: 12/09/19 00:35 Hydrocodone Bitart/Acetaminophen ([place] 5-325 Mg) 1 tab PO Q8H PRN PRN Reason: Severe Pain Stop: 12/09/19 00:31 Last Admin: 06/09/19 08:18 Dose: 1 tab Documented by: Dronedarone (Multaq) 400 mg PO BIDWM [facility] Stop: 12/09/19 08:01 Last Admin: 06/09/19 08:07 Dose: 400 mg Documented by: Enoxaparin Sodium (Lovenox *Pharmacy Wt Based*) 120 mg 1 mg/kg (120 mg) SQ NOW STA; Protocol Stop: 06/09/19 10:03 Furosemide (Lasix) 40 mg PO DAILY HANK Stop: 12/09/19 09:01 Last Admin: 06/09/19 08:08 Dose: 40 mg Documented by: Gabapentin (Neurontin) 300 mg PO BID [facility] Stop: 12/09/19 09:01 Last Admin: 06/09/19 08:08 Dose: Not Given Documented by: Naloxone HCl (Narcan) 0.4 mg IVP Q2MPRN PRN PRN Reason: SEE COMMENTS Stop: 12/09/19 00:36 Phenazopyridine HCl (Pyridium) 200 mg PO TID PRN PRN Reason: SEE COMMENTS Stop: 12/09/19 00:30 Last Admin: 06/09/19 06:16 Dose: 200 mg Documented by: Potassium Chloride (Potassium Chloride) 20 meq PO DAILY HANK Stop: 12/09/19 09:01 Last Admin: 06/09/19 08:08 Dose: 20 meq Documented by: Trazodone HCl (Trazodone) 200 mg PO HS [facility] Stop: 12/09/19 21:01 - Imaging and Cardiology Echo: pending - EKG Interpretation EKG results cardiology: personally reviewed Consult Discharge Plan - Plan Referrals: Manuel Alex MD [Primary Care Provider] - <Nicolette Son - Last Filed: 06/09/19 13:26> Date of Encounter: 06/09/19 - Attending Attestation I examined this patient and my medical decision-making was reviewed with the BOOM OPERATOR. I agree with the documented findings, disposition and treatment plan as described. Ms. Calvert presented with AF RVR now in NSR. Known AFIB follows with Mickey Bolden. Not on AC due to hematuria and upcoming Urologic procedure. No further recommendations at this time. Continue current medical regimen. Patient should follow up with her primary Chef Concierge at discharge. Signing off. Please call with questions. Assessment and Plan Discussion w patient/family: The assessment and plan as outlined above was discussed with the patient and/or family members who expressed understanding and agreement. All questions were answered. Thank you for involving us in the care of your patient. Please call with any questions. History of Present Illness History of present illness: Ms. Calvert is a 63 year old female All Systems Review: The remainder of the systems were reviewed and are negative Physical Examination Vital Signs, Last 4 Hours Temp Pulse Resp BP Pulse Ox 06/09/19 11:38 98.3 F 65 18 137/82 96 Results 06/09/19 02:50 06/09/19 02:50 Lab Results 06/08/19 06/08/19 06/08/19 19:49 19:49 19:49 WBC Hgb Hct Plt Count INR 1.0 APTT 30.0 Sodium Potassium Chloride Carbon Dioxide BUN Creatinine Glucose Calcium Magnesium Total Bilirubin 0.3 AST 30 ALT 18 Alkaline Phosphatase 94 Troponin I B-Natriuretic Peptide 268 H Lipase 25 TSH 06/08/19 06/08/19 06/09/19 19:49 19:49 02:50 WBC 8.4 Hgb 13.0 Hct 42.3 Plt Count 286 INR APTT Sodium 136 Potassium 3.2 L Chloride 99 Carbon Dioxide 27 BUN 12 Creatinine 1.28 H Glucose 106 H Calcium 9.2 Magnesium Total Bilirubin AST ALT Alkaline Phosphatase Troponin I 0.66 H* 0.48 H* B-Natriuretic Peptide Lipase TSH 06/09/19 06/09/19 06/09/19 02:50 02:50 02:50 WBC 7.2 Hgb 11.8 Hct 37.7 Plt Count 228 INR APTT Sodium 138 Potassium 3.9 Chloride 103 Carbon Dioxide 25 BUN 11 Creatinine 1.12 Glucose 106 H Calcium 8.8 Magnesium 2.1 Total Bilirubin AST ALT Alkaline Phosphatase Troponin I B-Natriuretic Peptide Lipase TSH 1.548 06/09/19 08:31 WBC Hgb Hct Plt Count INR APTT Sodium Potassium Chloride Carbon Dioxide BUN Creatinine Glucose Calcium Magnesium Total Bilirubin AST ALT Alkaline Phosphatase Troponin I 0.37 H* B-Natriuretic Peptide Lipase TSH
[2019-06-09 11:41] VITALS: BP 137/82
--- NOTE | 2019-06-09 14:45 | Event Note ---
Date of Encounter: 06/09/19 Time of Encounter: 14:44 - Cardiology Event Note TTE resulted--LVEF 60-65%. Normal LV chamber size, wall thickness and function. Mild concentric left ventricular hypertrophy. Normal right ventricular structure and function. Mild mitral regurgitation. Unable to estimate RVSP due to lack of TR jet. Per previous note, pt declines invasive testing here. Denies chest pain. Troponin downtrending and EF preserved on TTE with normal wall motion. Cardiology signing off. Reconsult PRN. Recommend f/up with established laborer pipelines within the week.
--- NOTE | 2019-06-09 15:10 | Discharge Summary ---
<Kj Correa - Last Filed: 06/09/19 15:04> - NOTES TO OUTPATIENT PROVIDER Notes to Outpatient Provider: Ms. Calvert is a 63 year old female w/PMH of atrial fibrillation not currently on anticoagulation, suspected CHF, and current renal stone in her left kidney presented to the ED w/CC of heart palpitations. S/P renal stent placed on with plan for lithotripsy to remove on 06/10/19. Patient has been taken off anticoagulation due to bleeding issues in her kidney. Patient takes Multaq twice a day but Cardizem only when necessary. BNP on admission is 268. Also on admission, initial troponin was 0.66. Patient was started on Diltiazem drip and HR improved from 140 to 110. Pt admitted to the hospitalist service. Cardiology was consulted and patient converted to sinus rhythm and echo was performed, revealing LVEF of 60-65%. Patient discharged with recommendation to follow up with Dr. Varghese. Orders not resulted at time of discharge: Pending orders 06/08/19 19:49 Culture,Urine [RM] Stat Date of Encounter: 06/09/19 Time of Encounter: 15:04 - Discharge Diagnosis (1) PAF (paroxysmal atrial fibrillation) Priority: Primary Status: Acute Assessment and Plan: PAF, diagnosed in 2004. This is first hospitalization for PAF. Typically converts with PRN cardizem dose. On Multaq 400mg BID at home. A-Fib RVR HR 130s on presentation, since converted to SR. - Echo performed, LVEF 60-65%. - Plan to discharge on statin and follow-up with Dr. Varghese. (2) Elevated troponin Priority: Secondary Status: Acute Assessment and Plan: Troponins 0.66, 0.48, 0.37 in setting of A-Fib RVR. Denied ACS symptoms during admission. - Pt given one time dose of therapeutic Lovenox per cardiology. - Follow up with Dr. Varghese, EF 60-65%. - Cardiac rehab not warranted. Pt declined [facility]. - No ASA secondary to hematuria and scheduled lithotripsy per cards. - Add statin at discharge. (3) Hypokalemia Priority: Secondary Status: Acute Assessment and Plan: Acute hypokalemia w/potassium of 3.2 on admission. Asymptomatic - One-time order for 40 mEq potassium elixir was given. - Potassium increased to 3.9. - PCP follow-up. - Follow up with decorative greens cutter. (4) CHF (congestive heart failure) Priority: Secondary Status: Chronic Assessment and Plan: BNP 268 on admission. - Continue PO lasix 40 mg daily at discharge. - LVEF was 60-65%. - F/U with decorative greens cutter. Qualifiers: Heart failure type: unspecified Heart failure chronicity: chronic Qualified Code(s): I50.9 - Heart failure, unspecified (5) Renal calculus, left Priority: Secondary Status: Chronic Assessment and Plan: Acute left renal calculus. Patient had renal stent placed on 06/06/19 w/plan for lithotripsy on 06/10/19. - ASA held at this time. - Pt to reschedule and f/u with urology. Hospital course: Ms. Calvert is a 63 year old female w/PMH of atrial fibrillation not currently on anticoagulation, suspected CHF, RLS, and current renal stone in her left kidney who presented from the ED w/CC of heart palpitations that began 06/08/19 and have not subsided. Patient had scope in December w/urine FISH tests in January, February, and April. She had renal stent placed on 06/06/19 with plan for lithotripsy to remove the kidney stone on 06/10/19. Patient has been taken off anticoagulation due to bleeding issues in her kidney. Patient reports she takes Multaq twice a day but Cardizem only when necessary. Also on admission, initial troponin was 0.66. Patient denies any CP. Associated symptoms on admission: Lightheadedness, dizziness, weakness, and SOB. Patient was started on Cardizem drip with improvement in her HR from 140 to 110s. Cardiology was consulted and recommended continuation of Cardizem drip and IV lasixs. Troponin trnded down 0.66, 0.48, 0.37 in setting of Afib. Hypokalemia was evident at 3.2 on admission which resolved after 40 meq IV potassium. P atients symptoms improved considerably and her cardizem drip was discontinued with HR stable in the 50's and normal SR. Echo was performed and demonstrated LVEF of 60-65%. Patient denied LHC and plans are to follow up with Dr. Varghese at [facility]. Plan to discharge today with prescription for statin. Urology, PCP, and cardiology follow-up. Discharge discussed with: patient, nurse - Time Spent with Patient Total time spent providing and/or coordinating discharge services: Time spent: Greater than 30 minutes - Discharge Medications Prescriptions: New Atorvastatin [Lipitor] 40 mg PO HS 30 Days #30 tablet Continued traZODone [TraZODone] 200 mg PO HS Furosemide [Lasix] 40 mg PO DAILY HYDROcodone/Acet 5/325 mg [[place] 5-325 mg] 1 tab PO BID PRN PRN Reason: Pain Gabapentin [Neurontin] 300 mg PO BID Phenazopyridine HCl [Pyridium] 200 mg PO TIDAC PRN PRN Reason: Bladder Spasms/Dysuria Dronedarone [Multaq] 400 mg PO BIDWM Potassium Chloride [Klor-Con] 20 meq PO DAILY Sulfamethoxazole/Trimeth DS [Bactrim Ds] 1 each PO BID Tizanidine HCl [Zanaflex] 4 mg PO HS Diltiazem [Cardizem] 60 mg PO AD PRN PRN Reason: See Comments Home Medications: Atorvastatin [Lipitor] 40 mg PO HS 30 Days #30 tablet 06/09/19 [Rx] Diltiazem [Cardizem] 60 mg PO AD PRN 06/09/19 [History] Dronedarone [Multaq] 400 mg PO BIDWM 06/09/19 [History] Furosemide [Lasix] 40 mg PO DAILY 06/09/19 [History] Gabapentin [Neurontin] 300 mg PO BID 06/09/19 [History] HYDROcodone/Acet 5/325 mg [[place] 5-325 mg] 1 tab PO BID PRN 06/09/19 [History] Phenazopyridine HCl [Pyridium] 200 mg PO TIDAC PRN 06/09/19 [History] Potassium Chloride [Klor-Con] 20 meq PO DAILY 06/09/19 [History] Sulfamethoxazole/Trimeth DS [Bactrim Ds] 1 each PO BID 06/09/19 [History] Tizanidine HCl [Zanaflex] 4 mg PO HS 06/09/19 [History] traZODone [TraZODone] 200 mg PO HS 06/09/19 [History] Allergies/Adverse Reactions: Allergy/AdvReac Type Severity Reaction Status Date / Time propoxyphene Allergy Rash Verified 06/08/19 19:25 [From Darvocet-N] oxycodone [From OxyContin] AdvReac Agitated Verified 06/08/19 19:26 Date of admission: 06/08/19 21:25 Primary care physician: Manuel Alex Consults: 06/08/19 21:20 Consult to Cardiology [CONS] Stat Comment: Consulting Provider: Cardiology Preethi Reason for Consult: Elevated troponin with Afib RVR Time Notified: 20:45 Call Completed: Yes Discharging clinician: Kj Correa Anticipated date of discharge: 06/09/19 - Constitutional Vitals: Temp Pulse Resp BP Pulse Ox 98.3 F 65 18 137/82 96 06/09/19 11:38 06/09/19 11:38 06/09/19 11:38 06/09/19 11:38 06/09/19 11:38 General appearance: Present: cooperative, A&O X 3, morbidly obese, pleasant, no acute distress, answers questions appropriately Exam: see below - Eye Eye exam: Present: normal appearance, conjuntiva pink Pupils: Present: PERRL - ENT ENT exam: Present: mucous membranes moist - Neck Neck exam general surgery: Present: normal inspection, trachea midline - Respiratory Respiratory exam: Present: CTAB. Absent: rales, respiratory distress, rhonchi, wheezes - Cardiovascular Cardiovascular exam: Present: RRR, +S1, +S2. Absent: diastolic murmur, JVD, systolic murmur - GI/Abdominal GI/Abdominal exam: Present: normal bowel sounds, soft. Absent: guarding, rigid, tenderness - Extremities Exam Extremities exam: Present: pedal edema (+1 chronic ), warm. Absent: cyanotic, tenderness - Neurological Exam Neurological exam: Present: CN II-XII intact, no focal deficits. Absent: facial droop, speech deficit - Psychiatric Psychiatric exam: Present: normal affect, normal mood - Skin Skin exam: Present: intact, normal color. Absent: cyanosis, rash - Patient Status Disposition: Home, Self-Care Condition: Good Functional capacity at discharge: independent ambulation Overall status at discharge: patient is back to baseline - Discharge Instructions Instructions: Atorvastatin (By mouth) Follow Up With: Manuel Alex MD [Primary Care Provider] - 06/16/19 2:00 pm Hussein Varghese [Non-Partnered Physician] - 06/15/19 3:40 pm Additional Instructions: - Continue your Multaq and PRN Cardizem. - We have added a statin drug to your current home medications. - Follow up with your decorative greens cutter Dr. Varghese for management. - Follow up with Urology for your kidney stone and scheduled lithotripsy. - If you develop persistent palpitations that do not resolve with your Cardizem or chest pain, shortness of breath, and/or nausea vomiting than call 911 immediately or go to the nearest emergency department. - Diet and Activity Activity: increase activity as tolerated Diet: advance to your usual diet <Marcial Carranza - Last Filed: 06/09/19 18:40> Orders not resulted at time of discharge: Pending orders 06/08/19 19:49 Culture,Urine [RM] Stat Date of Encounter: 06/09/19 - Discharge Diagnosis (1) Dizziness Status: Acute (2) SOB (shortness of breath) Priority: Secondary Status: Resolved (3) CHF (congestive heart failure) Status: Chronic Qualifiers: Heart failure type: diastolic Heart failure chronicity: chronic Qualified Code(s): I50.32 - Chronic diastolic (congestive) heart failure (4) Renal calculus, left Status: Chronic (5) Depression Priority: Secondary Status: Chronic Qualifiers: Depression Type: other depression Qualified Code(s): F32.89 - Other specified depressive episodes (6) Elevated troponin Status: Acute (7) Hypokalemia Status: Resolved (8) PAF (paroxysmal atrial fibrillation) Status: Acute Hospital course: Ms. Calvert is a 63 year old female - Time Spent with Patient Total time spent providing and/or coordinating discharge services: Date of admission: 06/08/19 21:25 Primary care physician: Manuel Alex Consults: 06/08/19 21:20 Consult to Cardiology [CONS] Stat Comment: Consulting Provider: Cardiology Preethi Reason for Consult: Elevated troponin with Afib RVR Time Notified: 20:45 Call Completed: Yes - Constitutional Vitals: Temp Pulse Resp BP Pulse Ox 98.3 F 65 18 137/82 96 06/09/19 11:38 06/09/19 11:38 06/09/19 11:38 06/09/19 11:38 06/09/19 11:38 - Attending Attestation I examined this patient and my medical decision-making was reviewed with the Resident Physician on 06/09/19. I agree with the documented findings, disposition and treatment plan as described except to the extent set forth below. Ms Calvert presented with atrial fibrillation and elevated troponin. She was evaluated by cardiology. Echo was OK and she is to follow up with her decorative greens cutter in [place]. She is now in sinus rhythm and has no pain. Exam Alert Comfortable. Mucus membranes dry. Neck supple. Heart reg and not tachy Plan D/C home today Resume home meds. D/C time 25min
--- NOTE | 2019-06-09 17:37 | Electrocardiograph Report ---
[place] [id number] Test Date: 2019-06-08 Pat Name: Cally Calvert Department: [id number] Room: 2A14 Gender: F Lending Advisor: : 1955 Requested By: Ina Dobson Order Number: [id number] Reading MD: Nicolette Son Measurements Intervals [place] Rate: 136 P: [place]: QRS: 2 QRSD: 86 T: 78 QT: 330 QTc: 497 Interpretive Statements Atrial fibrillation Abnormal R-wave progression, early transition Nonspecific repol abnormality, diffuse leads Electronically Signed On 06-09-2019 17:35:31 EDT by Nicolette Son
--- NOTE | 2019-06-09 17:38 | Electrocardiograph Report ---
[place] [address] Test Date: 2019-06-08 Pat Name: Cally Calvert Department: [id number] Room: 2A14 Gender: F Guidance Consultant: : [id number] Requested By: Mercy Rojas Order Number: [id number] Reading MD: Nicolette Son Measurements Intervals [place] Rate: 93 P: [place]: QRS: -7 QRSD: 99 T: 19 QT: 363 QTc: 452 Interpretive Statements Atrial fibrillation Abnormal R-wave progression, early transition Artifact Electronically Signed On 06-09-2019 17:36:44 EDT by Nicolette Son
[2019-06-09] MEDS ORDERED: traZODone 50 MG TABLET PO SCH (21:00)
== END 2019-06-09 16:14 | disposition home or self-care (01) ==
LOC: 2ANU 19:05 → EMEROOARM 19:05 → SUATTDRO 21:25 → 2ANU 21:40
PROVIDERS: ADMIT Internal Medicine; ATTEND Internal Medicine